=== PATIENT | male | born 1985 | race Caucasian/White ===

== ENCOUNTER 2021-05-04 09:19 | Emergency (ER) | payer OTHER ==
--- NOTE | 2021-05-04 09:53 | EDM.PDOCBH ---
ED HPI GENERAL MEDICAL PROBLEM - General Chief Complaint: Behavioral/Psych Stated Complaint: LAW ENFORCEMENT Time Seen by Provider: 05/04/21 09:52 Source of Information: Reports: Patient, RN, RN Notes Reviewed, Other (Suellen Garcia, [facility] [place] services social worker) - History of Present Illness INITIAL COMMENTS - FREE TEXT/NARRATIVE: Pt brought to ER from [facility] by Suellen Fisher for medical screening exam for potential psychiatric hospitalization. Pt is acutely psychotic, delusional, paranoid, and uncooperative. Pt states he went to the [facility] in [place] last week and was treated for a dental infection. He was then in [facility] a few days. He then went to the ER in [place], [place] and was [facility] health [facility]. Pt will not answer specific questions for me. He c/o dental infection from "meth mouth" with sore gums. He was prescribed Clindamycin and lost the prescription. Onset: Unknown/Unsure Duration: Chronic Location: Reports: Generalized Severity: Severe Improves with: Reports: None Worsens with: Reports: None Associated Symptoms: Reports: No Other Symptoms - Related Data Allergies Allergy/AdvReac Type Severity Reaction Status Date / Time No Known Allergies Allergy Verified 05/04/21 09:57 Home Meds: Home Meds . [No Known Home Meds] 05/04/21 [History] Past Medical History Psychiatric History: Reports: Psych Hospitalization(s) Social & Family History - Family History Family Medical History: Unobtainable - Recreational Drug Use Recreational Drug Use Frequency: Patient Refuses To Answer ED ROS GENERAL - Review of Systems Review Of Systems: Unable To Obtain Reason Not Obtained: Pt is uncooperative ED EXAM, BEHAVIORAL HEALTH - Physical Exam Exam: See Below Exam Limited By: Uncooperative General Appearance: Alert, No Apparent Distress, Anxious Eye Exam: Bilateral Eye: Normal Inspection Ears: Hearing Grossly Normal Nose: Normal Inspection Throat/Mouth: Normal Voice, No Airway Compromise, Other (Extensive dental decay, with gingivitis) Head: Atraumatic, Normocephalic Neck: Normal Inspection Respiratory/Chest: No Respiratory Distress, Lungs Clear Cardiovascular: Regular Rate, Rhythm GI/Abdominal: Normal Bowel Sounds, Soft, Non-Tender Back Exam: Normal Inspection Extremities: Normal Inspection Neurological: Alert, CN II-XII Intact, Normal Gait, No Motor/Sensory Deficits Psychiatric: Restless, Agitated, Uncooperative, Grandiose Thoughts, Paranoid Thoughts, Other (Delusional). No: Homicidal Thoughts, Suicidal Plan, Suicidal Thoughts, Auditory Hallucinations, Visual Hallucinations, Pressured Speech, Threatening Behavior Skin Exam: Warm, Dry, Intact, Normal color, No rash COURSE, BEHAVIORAL HEALTH COMP - Course Vital Signs: Last Vital Signs Temp 99.1 F 05/04/21 09:59 Pulse 73 05/04/21 09:59 Resp 20 05/04/21 09:59 BP 146/78 H 05/04/21 09:59 Pulse Ox 99 05/04/21 09:59 Orders, Labs, Meds: Active Orders 24 hr Category Date Time Status ACETAMINOPHEN [CHEM] Stat Lab 05/04/21 10:00 Ordered CBC WITH AUTO DIFF [HEME] Stat Lab 05/04/21 09:53 Ordered COMPREHENSIVE METABOLIC PN,CMP [CHEM] Stat Lab 05/04/21 09:53 Ordered ETHANOL BLOOD MEDICAL [CHEM] Stat Lab 05/04/21 09:53 Ordered MAGNESIUM [CHEM] Stat Lab 05/04/21 10:00 Ordered SALICYLATE [CHEM] Stat Lab 05/04/21 10:00 Ordered TSH ULTRASENSITIVE [CHEM] Stat Lab 05/04/21 10:00 Ordered Laboratory Tests 05/04/21 05/04/21 05/04/21 Range/Units 10:40 10:40 10:45 Urine Color Yellow (YELLOW) Urine Appearance Clear (CLEAR) Urine pH 7.0 (5.0-9.0) Ur Specific [place] 1.015 (1.005-1.030) Urine Protein Negative (NEGATIVE) Urine Glucose (UA) Negative (NEGATIVE) Urine Ketones Negative (NEGATIVE) Urine Occult Blood Negative (NEGATIVE) Urine Nitrite Negative (NEGATIVE) Urine Bilirubin Negative (NEGATIVE) Urine Urobilinogen 0.2 (0.2-1.0) mg/dL Ur Leukocyte Esterase Negative (NEGATIVE) Urine Opiates Screen Negative (NEGATIVE) Ur Oxycodone Screen Negative (NEGATIVE) Urine Methadone Screen Negative (NEGATIVE) Ur Barbiturates Screen Negative (NEGATIVE) U Tricyclic Antidepress Negative (NEGATIVE) Ur Phencyclidine Scrn Negative (NEGATIVE) Ur Amphetamine Screen Negative (NEGATIVE) U Methamphetamines Scrn Positive H (NEGATIVE) Urine MDMA Screen Negative (NEGATIVE) U Benzodiazepines Scrn Negative (NEGATIVE) Urine Cocaine Screen Negative (NEGATIVE) U Marijuana (THC) Screen Positive H (NEGATIVE) SARS-CoV-2 RNA (TIA) Negative (NEGATIVE) Medications Discontinued Medications Generic Name Dose Route Start Last Admin Trade Name Marquisq PRN Reason Stop Dose Admin Clindamycin HCl 300 mg 05/04/21 10:02 Clindamycin Hcl 150 Mg Cap PO 05/04/21 10:03 ONETIME ONE Diphenhydramine HCl 50 mg 05/04/21 10:19 Diphenhydramine 50 Mg/Ml Sdv IM 05/04/21 10:20 ONETIME ONE Haloperidol Lactate 10 mg 05/04/21 10:20 Haloperidol Lactate 5 Mg/Ml Sdv IM 05/04/21 10:21 ONETIME ONE Lorazepam 2 mg 05/04/21 10:11 05/04/21 10:48 Lorazepam 1 Mg Tab PO 05/04/21 10:12 2 mg ONETIME ONE Administration Lorazepam 2 mg 05/04/21 10:20 Lorazepam 2 Mg/Ml Sdv IM 05/04/21 10:21 ONETIME ONE Re-Assessment/Re-Exam: Pt eloped from the ER unwitnessed and was not able to be found. The police were notified and went to look for the pt. Suellen Fisher from [facility] advised that her plan to to have the pt taken to [facility] if he is found. Departure - Departure Time of Disposition: 11:51 Disposition: Eloped 07 Condition: Undetermined Clinical Impression: Methamphetamine abuse, Delusional disorder, Methamphetamine-induced mental disorder, Gingivitis - Discharge Information *PRESCRIPTION DRUG MONITORING PROGRAM REVIEWED*: No *COPY OF PRESCRIPTION DRUG MONITORING REPORT IN PATIENT DREW: No Forms: ED Department Discharge, Refusal of Medical Screening Sepsis Event Note (ED) - Focused Exam Vital Signs: Vital Signs Temp Pulse Resp BP Pulse Ox 05/04/21 09:59 99.1 F 73 20 146/78 H 99 - My Orders Last 24 Hours: My Active Orders 05/04/21 09:53 CBC WITH AUTO DIFF [HEME] Stat COMPREHENSIVE METABOLIC PN,CMP [CHEM] Stat ETHANOL BLOOD MEDICAL [CHEM] Stat 05/04/21 10:00 ACETAMINOPHEN [CHEM] Stat MAGNESIUM [CHEM] Stat SALICYLATE [CHEM] Stat TSH ULTRASENSITIVE [CHEM] Stat - Assessment/Plan Last 24 Hours: My Active Orders 05/04/21 09:53 CBC WITH AUTO DIFF [HEME] Stat COMPREHENSIVE METABOLIC PN,CMP [CHEM] Stat ETHANOL BLOOD MEDICAL [CHEM] Stat 05/04/21 10:00 ACETAMINOPHEN [CHEM] Stat MAGNESIUM [CHEM] Stat SALICYLATE [CHEM] Stat TSH ULTRASENSITIVE [CHEM] Stat
[2021-05-04] MEDS ORDERED: Clindamycin HCl 150 MG Cap PO ONE (10:02)
[2021-05-04] MEDS: LORazepam 1 MG Tab PO ONE ×2 (10:14→10:48)
[2021-05-04] MEDS ORDERED: diphenhydrAMINE 50 MG/ML SDV IM ONE (10:19)
[2021-05-04] MEDS ORDERED: Haloperidol Lactate 5 MG/ML SDV IM ONE (10:20)
[2021-05-04] MEDS ORDERED: LORazepam 2 MG/ML SDV IM ONE (10:20)
[2021-05-04 10:54] LABS: AMPHETAMINES,URINE NEGATIVE (NEGATIVE); BARBITURATES,URINE NEGATIVE (NEGATIVE); BENZODIAZEPINE,URINE NEGATIVE (NEGATIVE); MDMA (ECSTASY), URINE NEGATIVE (NEGATIVE); METHADONE,URINE NEGATIVE (NEGATIVE); METHAMPHETAMINES,URINE POSITIVE (NEGATIVE); OPIATES,URINE NEGATIVE (NEGATIVE); OXYCODONE,URINE NEGATIVE (NEGATIVE); PHENCYCLIDINE,URINE NEGATIVE (NEGATIVE); TCA,URINE NEGATIVE (NEGATIVE)
== END 2021-05-04 11:23 | disposition left against medical advice (07) ==
LOC: EDBD → DL.ED 09:19
DX: F15.150 Other stimulant abuse with stimulant-induced psychotic disorder with delusions (principal); K05.10 Chronic gingivitis, plaque induced; Z20.822 Contact with and (suspected) exposure to COVID-19
CPT/HCPCS: 80305; 81003; 87635; 99283; A9270; J1200; J1630; J2060; U0002